=== PATIENT | male | born 1965 | race Two or more races ===

== ENCOUNTER → 2017-02-19 | Emergency (ER) | payer OTHER, MEDICAID ==
[~2017-02-19] VITALS: Ht 170.2 cm; Wt 83.9 kg
[~2017-02-19] MED LIST: DIPHENOXYLATE W/ATROPINE 2.5 MG TAB PO PRN; DIPHENOXYLATE W/ATROPINE 2.5 MG TAB PO SCH; LITH300C3; LITHIUM CARBONATE 300 MG TAB PO SCH; QUET200T44; QUEtiapine FUMARATE 100 MG TAB PO SCH
[2017-02-19 14:04] LABS: Basophils # (auto) 0 uL; Basophils % (auto) 0.3 % (0.0-2.0); CONDITION Y; Eosinophils # (auto) 0.1 uL; Eosinophils % (auto) 1.7 % (0.0-7.0); Hematocrit 38.2 % (41.0-53.0); Hemoglobin 13.1 g/dL (13.5-17.5); Lymphocytes # (auto) 1.6 uL; Lymphocytes % (auto) 20.3 % (10.0-50.0); Mean Corpuscular Hemoglobin 30.2 pg (28.0-32.0); Mean Corpuscular Hgb Conc. 34.2 g/dL (32.0-36.0); Mean Corpuscular Volume 88.4 fL (80.0-100.0); Mean Platelet Volume 7.9 fL (7.4-10.4); Monocytes # (auto) 0.7 uL; Monocytes % (auto) 9.2 % (0.0-12.0); Neutrophils # (auto) 5.2 uL; Neutrophils % (auto) 68.5 % (37.0-80.0); Platelet Count (auto) 275 10^3/uL (140-450); Red Cell Distribution Width 13.8 % (11.6-16.0); White Blood Cell 7.7 10^3/uL (4.4-10.8)
[2017-02-19 14:23] LABS: Albumin 3.6 g/dL (3.4-5.0); Anion Gap 11 (5-15); Aspartate Aminotransferase 108 U/L (15-37); BUN/Creatinine Ratio 18.4; Blood Urea Nitrogen 19 mg/dL (7-18); Calcium 8.2 mg/dL (8.5-10.1); Carbon Dioxide 27 mmol/L (21-32); Chloride 100 mmol/L (98-107); GFR African American 99 mL/min; GFR Non-African American 82 mL/min; Glucose 138 mg/dL (74-106); Magnesium 2.4 mg/dL (1.6-2.6); Potassium 3.5 mmol/L (3.5-5.1); Salicylate < 1.7 mg/dL (2.8-20.0); Sodium 138 mmol/L (136-145)
[2017-02-19 14:24] LABS: Acetaminophen < 2.0 ug/mL (10-30)
[2017-02-19 14:26] LABS: Alkaline Phosphatase 66 U/L (45-117); Bilirubin, Total 0.7 mg/dL (0.2-1.0); Total Protein 7.7 g/dL (6.4-8.2)
[2017-02-20 12:27] VITALS: BP 98/64
== END | disposition home or self-care (01) ==
LOC: ER 13:27
DX: F31.9 Bipolar disorder, unspecified (principal); R45.851 Suicidal ideations; F17.210 Nicotine dependence, cigarettes, uncomplicated; F11.10 Opioid abuse, uncomplicated; F12.10 Cannabis abuse, uncomplicated; F15.10 Other stimulant abuse, uncomplicated; F14.10 Cocaine abuse, uncomplicated
CPT/HCPCS: 36415; 80053; 80307; 80320; 80329; 83735; 84484; 85025; 93005

== ENCOUNTER 2017-03-23 07:31 | Emergency (ER) | payer OTHER, MEDICAID ==
[~2017-03-23] VITALS: Ht 167.6 cm; Wt 75.3 kg
[~2017-03-23 07:31] MED LIST changes: -DIPHENOXYLATE W/ATROPINE 2.5 MG TAB PO PRN; -DIPHENOXYLATE W/ATROPINE 2.5 MG TAB PO SCH; -LITHIUM CARBONATE 300 MG TAB PO SCH; -QUEtiapine FUMARATE 100 MG TAB PO SCH
[2017-03-23 09:34] LABS: Basophils # (auto) 0.1 uL; Basophils % (auto) 0.4 % (0.0-2.0); CONDITION Y; Eosinophils # (auto) 0 uL; Eosinophils % (auto) 0.3 % (0.0-7.0); Hematocrit 40.8 % (41.0-53.0); Hemoglobin 13.7 g/dL (13.5-17.5); Lymphocytes # (auto) 1.8 uL; Lymphocytes % (auto) 13.3 % (10.0-50.0); Mean Corpuscular Hemoglobin 30.2 pg (28.0-32.0); Mean Corpuscular Hgb Conc. 33.7 g/dL (32.0-36.0); Mean Corpuscular Volume 89.5 fL (80.0-100.0); Mean Platelet Volume 7.9 fL (7.4-10.4); Monocytes # (auto) 0.7 uL; Monocytes % (auto) 4.9 % (0.0-12.0); Neutrophils # (auto) 10.8 uL; Neutrophils % (auto) 81.1 % (37.0-80.0); Platelet Count (auto) 322 10^3/uL (140-450); Red Cell Distribution Width 14.2 % (11.6-16.0); White Blood Cell 13.3 10^3/uL (4.4-10.8)
[2017-03-23 09:50] LABS: Albumin 3.8 g/dL (3.4-5.0); BUN/Creatinine Ratio 20.2; Calcium 8.4 mg/dL (8.5-10.1); Potassium 3.3 mmol/L (3.5-5.1)
[2017-03-23 09:54] LABS: Bilirubin, Total 0.8 mg/dL (0.2-1.0)
[2017-03-23 11:38] LABS: Urine Bilirubin Negative (Negative); Urine Blood TRACE /uL (Negative); Urine Color Yellow (Yellow); Urine Glucose Normal (Normal); Urine Nitrite Negative (Negative); Urine RBC 2 /hpf (0 - 3); Urine Squamous Epithelial Cell FEW /hpf (<5); Urine Urobilinogen Normal (Negative)
[2017-03-23 11:40] LABS: Urine Ketone 1+ (Negative)
[2017-03-23] MEDS ORDERED: LEVOFLOXACIN 250 MG TAB PO ONE (13:45)
[2017-03-24] MEDS ORDERED: LORazepam 0.5 MG TAB PO ONE (08:15)
[2017-03-24 14:43] VITALS: BP 100/63
== END 2017-03-24 14:59 | disposition short-term general hospital (02) ==
LOC: ER 07:31
DX: R45.851 Suicidal ideations (principal); F31.9 Bipolar disorder, unspecified; F12.10 Cannabis abuse, uncomplicated; F15.10 Other stimulant abuse, uncomplicated; F11.20 Opioid dependence, uncomplicated; F17.210 Nicotine dependence, cigarettes, uncomplicated
CPT/HCPCS: 36415; 71010; 80053; 80307; 80320; 80329; 81001; 85025

== ENCOUNTER → 2024-11-10 | Outpatient (CLI) | payer OTHER ==
[~2024-11-10] MED LIST changes: -QUET200T44; +QUET200T45
[2024-11-10 13:20] LABS: Urine Bacteria None Seen /hpf (None Seen)
[2024-11-10 13:36] LABS: Urine Blood 1+ /uL (Negative); Urine Clarity Clear (Clear); Urine Color Light-Yellow (Yellow); Urine Protein, UAD 2+ (Negative); Urine Specific Gravity 1.015 (1.001-1.035); Urine Squamous Epithelial Cell None Seen /hpf (<5); Urine Urobilinogen Normal (Negative); Urine WBC 1 /HPF (0-3)
[2024-11-10 13:38] LABS: Basophils # (auto) 0 10 ^3/uL (0-0.2); Basophils % (auto) 0.4 % (0.0-2.0); Eosinophils # (auto) 0.3 10 ^3/uL (0-0.8); Hematocrit 35.1 % (41.0-53.0); Hemoglobin 11.9 g/dL (13.5-17.5); Lymphocytes % (auto) 16.2 % (10.0-50.0); Mean Corpuscular Hemoglobin 29.5 pg (28.0-32.0); Mean Corpuscular Hgb Conc. 33.8 g/dL (32.0-36.0); Mean Corpuscular Volume 87.4 fL (80.0-100.0); Monocytes # (auto) 0.5 10 ^3/uL (0-1.3); Neutrophils # (auto) 4.1 10 ^3/uL (1.6-8.6); Neutrophils % (auto) 70.4 % (37.0-80.0); Nucleated Red Blood Cells % 0.1 %; Platelet Count (auto) 204 10^3/uL (140-450); Red Blood Cells 4.02 10^6/uL (4.5-5.90); White Blood Cell 5.9 10^3/uL (4.4-10.8)
[2024-11-10 14:20] LABS: Anion Gap 10 (5-15); Carbon Dioxide 26 mmol/L (20-31); Chloride 104 mmol/L (98-107); Sodium 140 mmol/L (136-145)
[2024-11-10 14:21] LABS: Calcium 9.7 mg/dL (8.7-10.4)
[2024-11-10 14:25] LABS: Uric Acid 5.9 mg/dL (3.7-9.2)
[2024-11-10 14:26] LABS: BUN/Creatinine Ratio 11.4 (10.0-20.0); Glucose 95 mg/dL (74-106)
[2024-11-10 14:28] LABS: Phosphorus 4.3 mg/dL (2.4-5.1)
[2024-11-10 14:29] LABS: Blood Urea Nitrogen 35 mg/dL (9-23)
== END | disposition home or self-care (01) ==
LOC: LAB 13:04
PROVIDERS: ATTEND Internal Medicine Nephrology
DX: N18.6 End stage renal disease (principal); E55.9 Vitamin D deficiency, unspecified; E21.5 Disorder of parathyroid gland, unspecified; N39.0 Urinary tract infection, site not specified
CPT/HCPCS: 36415; 80048; 81001; 82043; 82306; 83970; 84100; 84550; 85025; 87086

== ENCOUNTER 2024-12-02 15:21 | Emergency (ER) | payer OTHER ==
[~2024-12-02] VITALS: Ht 167.6 cm; Wt 90.0 kg
[2024-12-02 15:48] VITALS: BP 159/84; PULSE 100; RESP 19; TEMP 98; O2SAT 98
--- NOTE | 2024-12-02 16:32 | ED.PDOC ---
History of Present Illness HPI Comments 59 year old male presents to the ED with a chief complaint of dialysis catheter removal onset today. Patient states last dialysis was 4 months ago. Patient recently moved to the [facility], PCP told him to come to ED for catheter removal, states he "squeezed out" blood clot last night. Denies any chest pain, nausea, vomiting, diarrhea, shortness of breath, dizziness, fevers, chills. No other symptoms or modifying factors present at this time. Chief Complaint: Tube Replacement Time Seen by MD: 16:25 Primary Care Provider: none Reviewed Notes: Medications, Allergies Allergies: Coded Allergies: NO KNOWN ALLERGIES (Unverified , 10/02/15) Home Meds Reported Medications [place] Carbonate (Lantry Carbonate) 300 Mg Cap, #30 02/20/17 Quetiapine Fumerate (QUETIAPINE FUMARATE) 200 Mg Tab, #15 02/20/17 Information Source: Patient Mode of Arrival: Ambulatory Severity: Moderate Timing: Hours Duration: Since onset Prehospital treatment: None Past Medical History PAST MEDICAL HISTORY: Depression Surgical History: Denies all surgeries Family History Family History: Unknown Social History Smoker: Cigarettes Alcohol: Heavy Drugs: Heroin, Marijuana, Methamphetamine Lives In: Home Constitutional: denies: chills, diaphoresis, fatigue, fever, malaise, sweats, weakness, others EENTM: denies: blurred vision, double vision, ear bleeding, ear discharge, ear drainage, ear pain, ear ringing, eye pain, eye redness, hearing loss, mouth pain, mouth swelling, nasal discharge, nose bleeding, nose congestion, nose pain, photophobia, tearing, throat pain, throat swelling, voice changes, others Respiratory: denies: cough, hemoptysis, orthopnea, SOB at rest, shortness of breath, SOB with excertion, stridor, wheezing, others Cardiovascular: denies: chest pain, dizzy spells, diaphoresis, Dyspnea on exertion, edema, irregular heart beat, left arm pain, lightheadedness, palpitations, PND, syncope, others Gastrointestinal: denies: abdomen distended, abdominal pain, blood streaked bowels, constipated, diarrhea, dysphagia, difficulty swallowing, hematemesis, melena, nausea, poor appetite, poor fluid intake, rectal bleeding, rectal pain, vomiting, others Genitourinary: denies: burning, dysuria, flank pain, frequency, hematuria, incontinence, penile discharge, penile sore, pain, testicle pain, testicle swelling, urgency, others Neurological: denies: dizziness, fainting, headache, left sided numbness, left sided weakness, numbness, paresthesia, pre-existing deficit, right sided numbness, right sided weakness, seizure, speech problems, tingling, tremors, weakness, others Musculoskeletal: denies: back pain, gout, joint pain, joint swelling, muscle pain, muscle stiffness, neck pain, others Integumetry: denies: bruises, change in color, change in hair/nails, dryness, laceration, lesions, lumps, rash, wounds, others Allergic/Immunocompromised: denies: Difficulty Healing, Frequent Infections, Hives, Itching, others Hematologic/Lymphatic: denies: anemia, blood clots, easy bleeding, easy bruising, swollen glands, others Endocrine: denies: excessive hunger, excessive sweating, excessive thirst, excessive urination, flushing, intolerance to cold, intolerance to heat, unexplained weight gain, unexplained weight loss, others Psychiatric: denies: anxiety, bipolar disorder, depression, hopeless, panic disorder, schizophrenia, sleepless, suicidal, others All Other Systems: Reviewed and Negative Physical Exam General Appearance: No Apparent Distress, Normal, Other (well appearing dialysis catheter) HEENT: Normal ENT Inspection, Pharynx Normal, TMs Normal Neck: Full Range of Motion, Non-Tender, Normal, Normal Inspection Respiratory: Chest Non-Tender, Lungs Clear, No Accessory Muscle Use, No Respiratory Distress, Normal Breath Sounds Cardiovascular: No Edema, No JVD, No Murmur, No Gallop, Normal Peripheral Pulses, Regular Rate/Rhythm Breast Exam: Deferred Gastrointestinal: No Organomegaly, Non Tender, No Pulsatile Mass, Normal Bowel Sounds, Soft Genitalia: Deferred Pelvic: Deferred Rectal: Deferred Extremities: No calf tenderness, Normal capillary refill, Normal inspection, Normal range of motion, Non-tender, No pedal edema Musculoskeletal : Apperance: Normal Neurologic: Alert, ion exchange operator II-XII nml as Tested, No Motor Deficits, Normal Affect, Normal Mood, No Sensory Deficits Cerebellar Function: Normal Reflexes: Normal Skin: Dry, Normal Color, Warm, Other (well appearing dialysis catheter) Lymphatic: No Adenopathy Was a procedure done? Was a procedure done?: No Differential Dx Considerations may include: Dialysis catheter malfunction X-Ray, Labs, Meds, VS Vital Signs Date Time Temp Pulse Resp B/P (MAP) Pulse Ox O2 Delivery O2 Flow Rate FiO2 12/02/24 15:48 98.0 100 19 159/84 (109) 98 98.0 [facility] [address] [facility] [address] Ph: [phone] DIAGNOSTIC IMAGING Diagnostic Imaging Report : [id number] Signed PATIENT: MARIPOSA FRAZIER ACCT: [id number] UNIT: [id number] : 1965 LOC: ER ROOM / BED: / AGE / SEX: 59 / M ADM STATUS: REG ER SERVICE 1626 ORDERING PHYSICIAN: AGATHA JUAREZ MD PROCEDURE(s): CXRP - CHEST PORTABLE REASON: evaluate dialysis catheter ORDER NUMBER(s): [id number], ACCESSION NUMBER(s): [id number] CHEST RADIOGRAPH Indication: evaluate dialysis catheter Technique: Single frontal view of the chest was obtained COMPARISON: None FINDINGS: Lines and Tubes: Dave catheter ends in the superior vena cava distally. Atrial appendage closure device noted. Lungs: Clear Pleura: Blunting left costophrenic angle which may be postsurgical in nature. Mild left lateral pleural thickening No pneumothorax. Cardiomediastinal contours: Unremarkable Bones: Unremarkable IMPRESSION: 1. Dave catheter ends in the distal superior vena cava Blunting left costophrenic angle with mild left pleural thickening No pneumothorax ATED BY: ANGIE LOMAS MD DICTATED DATE/TIME: 12/02/241657 SIGNED BY: ANGIE LOMAS MD SIGNED DATE/TIME: 12/02/241657 CC: Time of 1ST Reevaluation: 16:55 Reevaluation 1ST: Unchanged Patient Education/Counseling: Diagnosis, Treatment, Prognosis Family Education/Counseling: No Family Present Departure 1 Departure Time of Disposition: 17:35 (Patient has an unused dialysis catheter. We will discharge patient with outpatient follow up for dialysis catheter removal) Impression: Primary Impression: Encounter for dialysis catheter care Disposition: HOME / SELF CARE / HOMELESS Condition: Stable Additional Instructions: Please call [phone] to schedule an appointment with interventional radiology to remove the dialysis catheter. Discharged With: Self Critical Care Note Critical Care Time?: No Stability Stability form required: No I personally scribed for AGATHA JUAREZ MD ([email or web address]) on 12/02/24 at 16:32. Electronically submitted by Lynette Worley ([email or web address]). I personally scribed for AGATHA JUAREZ MD ([email or web address]) on 12/02/24 at 17:20. Electronically submitted by Lynette Worley ([email or web address]). AGATHA JUAREZ MD Dec 02, 2024 16:32
--- NOTE | 2024-12-02 17:00 | DVH ---
CHEST RADIOGRAPH Indication: evaluate dialysis catheter Technique: Single frontal view of the chest was obtained COMPARISON: None FINDINGS: Lines and Tubes: Dave catheter ends in the superior vena cava distally. Atrial appendage closure d evice noted. Lungs: Clear Pleura: Blunting left costophrenic angle which may be postsurgical in nature. Mild left lateral pleur al thickening No pneumothorax. Cardiomediastinal contours: Unremarkable Bones: Unremarkable IMPRESSION: 1. Dave catheter ends in the distal superior vena cava Blunting left costophrenic angle with mild left pleural thickening No pneumothorax
[2024-12-03] MEDS ORDERED: [UNRECOGNIZED DRUG - CODE] (22:45)
== END 2024-12-02 23:06 | disposition home or self-care (01) ==
LOC: ER 15:29
DX: Z45.2 Encounter for adjustment and management of vascular access device (principal); F32.A Depression, unspecified; F17.210 Nicotine dependence, cigarettes, uncomplicated; F15.90 Other stimulant use, unspecified, uncomplicated; F11.90 Opioid use, unspecified, uncomplicated; Z99.2 Dependence on renal dialysis; Z79.899 Other long term (current) drug therapy
CPT/HCPCS: 71045

== ENCOUNTER 2024-12-03 11:43 | Observation (INO) | payer OTHER ==
--- NOTE | 2024-12-03 12:20 | ED.PDOC ---
History of Present Illness HPI Comments 59Y M presents to the ED with a chief complaint of dialysis catheter removal. Patient states last dialysis was 4 months ago. Patient recently moved to the [facility], PCP told him to come to ED for catheter removal, states he "squeezed out" blood clot 2 nights ago. Pt was seen at [facility] ER yesterday, 12/02/2024, and was advised to f/u with outpatient IR. Pt was referred back to ED. Pt denies any chest pain, nausea, vomiting, diarrhea, shortness of breath, dizziness, fevers, chills. No other symptoms or modifying factors present at this time. Chief Complaint: Tube Replacement Time Seen by MD: 12:00 Primary Care Provider: ANDREA BALLESTEROS Reviewed Notes: Nurses Notes, Medications, Allergies Allergies: Coded Allergies: NO KNOWN ALLERGIES (Unverified , 10/02/15) Home Meds Reported Medications [place] Carbonate (Ekalaka Carbonate) 300 Mg Cap, #30 02/20/17 Quetiapine Fumerate (QUETIAPINE FUMARATE) 200 Mg Tab, #15 02/20/17 Information Source: Patient Mode of Arrival: Ambulatory Severity: None Duration: Since onset Prehospital treatment: None Past Medical History PAST MEDICAL HISTORY: Depression Surgical History: Denies all surgeries Family History Family History: Unknown Social History Smoker: Cigarettes Alcohol: Heavy Drugs: Heroin, Marijuana, Methamphetamine Lives In: Home Constitutional: denies: chills, diaphoresis, fatigue, fever, malaise, sweats, weakness, others EENTM: denies: blurred vision, double vision, ear bleeding, ear discharge, ear drainage, ear pain, ear ringing, eye pain, eye redness, hearing loss, mouth pain, mouth swelling, nasal discharge, nose bleeding, nose congestion, nose pain, photophobia, tearing, throat pain, throat swelling, voice changes, others Respiratory: denies: cough, hemoptysis, orthopnea, SOB at rest, shortness of breath, SOB with excertion, stridor, wheezing, others Cardiovascular: denies: chest pain, dizzy spells, diaphoresis, Dyspnea on exertion, edema, irregular heart beat, left arm pain, lightheadedness, palpitations, PND, syncope, others Gastrointestinal: denies: abdomen distended, abdominal pain, blood streaked bowels, constipated, diarrhea, dysphagia, difficulty swallowing, hematemesis, melena, nausea, poor appetite, poor fluid intake, rectal bleeding, rectal pain, vomiting, others Genitourinary: denies: burning, dysuria, flank pain, frequency, hematuria, incontinence, penile discharge, penile sore, pain, testicle pain, testicle swelling, urgency, others Neurological: denies: dizziness, fainting, headache, left sided numbness, left sided weakness, numbness, paresthesia, pre-existing deficit, right sided numbness, right sided weakness, seizure, speech problems, tingling, tremors, weakness, others Musculoskeletal: denies: back pain, gout, joint pain, joint swelling, muscle pain, muscle stiffness, neck pain, others Integumetry: denies: bruises, change in color, change in hair/nails, dryness, laceration, lesions, lumps, rash, wounds, others Allergic/Immunocompromised: denies: Difficulty Healing, Frequent Infections, Hives, Itching, others Hematologic/Lymphatic: denies: anemia, blood clots, easy bleeding, easy bruising, swollen glands, others Endocrine: denies: excessive hunger, excessive sweating, excessive thirst, excessive urination, flushing, intolerance to cold, intolerance to heat, unexplained weight gain, unexplained weight loss, others Psychiatric: denies: anxiety, bipolar disorder, depression, hopeless, panic disorder, schizophrenia, sleepless, suicidal, others All Other Systems: Reviewed and Negative Physical Exam General Appearance: No Apparent Distress, Normal HEENT: Normal ENT Inspection, Pharynx Normal, TMs Normal Neck: Full Range of Motion, Non-Tender, Normal, Normal Inspection Respiratory: Chest Non-Tender, Lungs Clear, No Accessory Muscle Use, No Respiratory Distress, Normal Breath Sounds Cardiovascular: No Edema, No JVD, No Murmur, No Gallop, Normal Peripheral Pulses, Regular Rate/Rhythm Breast Exam: Deferred Gastrointestinal: No Organomegaly, Non Tender, No Pulsatile Mass, Normal Bowel Sounds, Soft Genitalia: Deferred Pelvic: Deferred Rectal: Deferred Extremities: No calf tenderness, Normal capillary refill, Normal inspection, Normal range of motion, Non-tender, No pedal edema Musculoskeletal : Apperance: Normal Neurologic: Alert, activities officer II-XII nml as Tested, No Motor Deficits, Normal Affect, Normal Mood, No Sensory Deficits Cerebellar Function: NOT DONE Reflexes: NOT DONE Skin: Dry, Normal Color, Warm Lymphatic: No Adenopathy Was a procedure done? Was a procedure done?: No Differential Dx Considerations may include: Dialysis tube malfunction X-Ray, Labs, Meds, VS Vital Signs Date Time Temp Pulse Resp B/P (MAP) Pulse Ox O2 Delivery O2 Flow Rate FiO2 12/03/24 12:00 98.3 94 20 164/95 (118) 98 98.3 Lab Test 12/03/24 12:15 Range/Units White Blood Count 5.8 4.4-10.8 10^3/uL Red Blood Count 4.02 L 4.5-5.90 10^6/uL Hemoglobin 11.6 L 13.5-17.5 g/dL Hematocrit 35.0 L 41.0-53.0 % Mean Corpuscular Volume 87.1 80.0-100.0 fL Mean Corpuscular Hemoglobin 28.8 28.0-32.0 pg Mean Corpuscular Hemoglobin Concent 33.1 32.0-36.0 g/dL Red Cell Distribution Width 15.7 H 11.8-14.3 % Platelet Count 249 140-450 10^3/uL Mean Platelet Volume 7.7 6.9-10.8 fL Neutrophils (%) (Auto) 70.2 37.0-80.0 % Lymphocytes (%) (Auto) 14.6 10.0-50.0 % Monocytes (%) (Auto) 9.6 0.0-12.0 % Eosinophils (%) (Auto) 5.5 0.0-7.0 % Basophils (%) (Auto) 0.1 0.0-2.0 % Neutrophils # (Auto) 4.1 1.6-8.6 10 ^3/uL Lymphocytes # (Auto) 0.9 0.4-5.4 10 ^3/uL Monocytes # (Auto) 0.6 0-1.3 10 ^3/uL Eosinophils # (Auto) 0.3 0-0.8 10 ^3/uL Basophils # (Auto) 0 0-0.2 10 ^3/uL Nucleated Red Blood Cells 0.0 % Prothrombin Time Pending Prothrombin Time INR Pending Activated Partial Thromboplast Time Pending Sodium Level Pending Potassium Level Pending Chloride Level Pending Carbon Dioxide Level Pending Anion Gap Pending Blood Urea Nitrogen Pending Creatinine Pending Glomerular Filtration Rate Calc Pending BUN/Creatinine Ratio Pending Serum Glucose Pending Calcium Level Pending Time of 1ST Reevaluation: 12:30 Reevaluation 1ST: Unchanged Patient Education/Counseling: Diagnosis, Treatment Family Education/Counseling: No Family Present Departure 1 Departure Time of Disposition: 12:49 (Patient presents with concern for dialysis catheter infection verses displacement and would likely need it removed.) Impression: Primary Impression: Encounter for dialysis catheter care Disposition: ADMITTED INPATIENT Admit to: Med Surg Condition: Serious Critical Care Note Critical Care Time?: No Stability Stability form required: No Heart Score Heart Score: Heart Score Response (Comments) Value History N/A 0 EKG N/A 0 Age N/A 0 Risk Factors N/A 0 Troponin N/A 0 Total 0 I personally scribed for AGATHA JUAREZ MD ([email or web address]) on 12/03/24 at 12:20. Electronically submitted by Una Etienne ([email or web address]). AGATHA JUAREZ MD Dec 03, 2024 12:20
[2024-12-03 12:41] LABS: Basophils # (auto) 0 10 ^3/uL (0-0.2); Basophils % (auto) 0.1 % (0.0-2.0); Eosinophils # (auto) 0.3 10 ^3/uL (0-0.8); Eosinophils % (auto) 5.5 % (0.0-7.0); Hemoglobin 11.6 g/dL (13.5-17.5); Lymphocytes # (auto) 0.9 10 ^3/uL (0.4-5.4); Lymphocytes % (auto) 14.6 % (10.0-50.0); Mean Corpuscular Hemoglobin 28.8 pg (28.0-32.0); Mean Corpuscular Hgb Conc. 33.1 g/dL (32.0-36.0); Mean Corpuscular Volume 87.1 fL (80.0-100.0); Monocytes # (auto) 0.6 10 ^3/uL (0-1.3); Monocytes % (auto) 9.6 % (0.0-12.0); Neutrophils # (auto) 4.1 10 ^3/uL (1.6-8.6); Neutrophils % (auto) 70.2 % (37.0-80.0); Platelet Count (auto) 249 10^3/uL (140-450); Red Blood Cells 4.02 10^6/uL (4.5-5.90); Red Cell Distribution Width 15.7 % (11.8-14.3); White Blood Cell 5.8 10^3/uL (4.4-10.8)
[2024-12-03 12:51] LABS: Chloride 104 mmol/L (98-107); Potassium 4.2 mmol/L (3.5-5.1); Sodium 137 mmol/L (136-145)
[2024-12-03 12:52] LABS: Anion Gap 6 (5-15); Carbon Dioxide 27 mmol/L (20-31)
[2024-12-03 12:53] LABS: Calcium 9.6 mg/dL (8.7-10.4)
[2024-12-03 12:55] LABS: INR 1.01 (0.9-1.15); Partial Thromboplastin Time 30.6 SEC (24.5-34.5); Prothrombin Time 10.7 sec (9.3-11.8)
[2024-12-03 12:57] LABS: BUN/Creatinine Ratio 9.9 (10.0-20.0); Glucose 85 mg/dL (74-106)
[2024-12-03 13:02] LABS: Blood Urea Nitrogen 30 mg/dL (9-23)
[2024-12-03 13:40] VITALS: PULSE 91; RESP 18; O2SAT 94
[2024-12-03] MEDS: LOSARTAN POTASSIUM 25 MG TAB PO ONE (16:45)
--- NOTE | 2024-12-03 18:57 | DVHHPRES ---
History of Present Illness Resident Creating Document: HUY GALEANO RESIDENT History of Present Illness This is a 59-year-old male with past medical history of hypertension, CAD status post CABG, CKD stage 3 on hemodialysis for 1 year presented to the ED for removal of dialysis catheter. The patient states that his ultrasound applications specialist mentioned 1 month ago he did not need dialysis and recommended to go to the ED for removal of the dialysis catheter. He also mentioned that he monitor his blood pressure in home and numbers are always elevated more than 150/90 mm Hg. He moved [place] for 5 months ago and he does not have any PCP so he is not on any antihypertensive for hypertension. The patient denies fever, chills, shortness of breath, chest pain, dizziness, dysuria or any change in bowel and bladder habit. Past Medical History Hypertension, CAD status post CABG, CKD stage 3 on hemodialysis for 1 year Past Surgical History CABG Family History None Past Social History Lives with family Nonsmoker, nonalcoholic and never tried any drugs Review of Systems Constitutional: No: Fever, Chills, Sweats, Weakness, Malaise, Other Eyes: No: Pain, Vision change, Conjunctivae inflammation, Eyelid inflammation, Other, Redness ENT: No: Ear pain, Ear discharge, Nose pain, Nose discharge, Nose congestion, Mouth pain, Mouth swelling, Throat pain, Throat swelling, Other Respiratory: No: Cough, Dry, Shortness of breath, SOB with excertion, Wheezing, Hemoptysis, Pleuritic Pain, Sputum, Wheezing, Other Cardiovascular: No: Chest Pain, Palpitations, Orthopnea, Paroxysmal Noc. Dyspnea, Edema, Lt Headedness, Other Gastrointestinal: No: Nausea, Vomiting, Abdominal Pain, Diarrhea, Constipation, Melena, Hematochezia, Other Genitourinary: No Dysuria, No Frequency, No Incontinence, No Hematuria, No Retention, No Other Musculoskeletal: No: other, neck pain, shoulder pain, arm pain, back pain, hand pain, leg pain, foot pain Skin: No: Rash, Lesions, Jaundice, Bruising, Other Neurological: No: Weakness, Numbness, Incoordination, Change in speech, Confusion, Seizures, Other Allergies: Coded Allergies: NO KNOWN ALLERGIES (Unverified , 10/02/15) Medications Current Medications Medications Dose Ordered Sig/Florian Route Start Time Stop Time Status Last Admin Dose Admin Losartan Potassium 25 mg DAILY PO 12/04/24 10:00 Exam Vital Signs Vital Signs Date Time Temp Pulse Resp B/P (MAP) Pulse Ox O2 Delivery O2 Flow Rate FiO2 12/03/24 14:30 97.9 91 16 170/99 (122) 96 97.9 12/03/24 13:40 Room Air* 0 21 Exam Physical examination: General Appearance: Alert, Oriented X3, Cooperative, No acute distress HEENT: Atraumatic, PERRLA, EOMI, Mucous membrane moist/pink Respiratory: Clear to auscultation, Normal air movement Cardiovascular: Regular rate, Normal S1, Normal S2, No murmurs, no chest wall tenderness Abdominal: Normal bowel sounds, Soft, No tenderness, No hepatospenomegaly, No masses Extremities: No clubbing, No cyanosis, No edema, Normal pulses, No tenderness/swelling Skin: Tunnel catheter for dialysis on the right side, No rashes, No breakdown, No significant lesion Neuro: Normal gait, Normal speech, Strength at 5/5 X4 ext, Normal tone, Sensation intact, Cranial nerves 3-12 NL, Reflexes 2+ Psych/Mental Status: Mental status NL, Mood NL Labs/Xrays Labs Test 12/03/24 12:15 Range/Units White Blood Count 5.8 4.4-10.8 10^3/uL Red Blood Count 4.02 L 4.5-5.90 10^6/uL Hemoglobin 11.6 L 13.5-17.5 g/dL Hematocrit 35.0 L 41.0-53.0 % Mean Corpuscular Volume 87.1 80.0-100.0 fL Mean Corpuscular Hemoglobin 28.8 28.0-32.0 pg Mean Corpuscular Hemoglobin Concent 33.1 32.0-36.0 g/dL Red Cell Distribution Width 15.7 H 11.8-14.3 % Platelet Count 249 140-450 10^3/uL Mean Platelet Volume 7.7 6.9-10.8 fL Neutrophils (%) (Auto) 70.2 37.0-80.0 % Lymphocytes (%) (Auto) 14.6 10.0-50.0 % Monocytes (%) (Auto) 9.6 0.0-12.0 % Eosinophils (%) (Auto) 5.5 0.0-7.0 % Basophils (%) (Auto) 0.1 0.0-2.0 % Neutrophils # (Auto) 4.1 1.6-8.6 10 ^3/uL Lymphocytes # (Auto) 0.9 0.4-5.4 10 ^3/uL Monocytes # (Auto) 0.6 0-1.3 10 ^3/uL Eosinophils # (Auto) 0.3 0-0.8 10 ^3/uL Basophils # (Auto) 0 0-0.2 10 ^3/uL Nucleated Red Blood Cells 0.0 % Prothrombin Time 10.7 9.3-11.8 sec Prothrombin Time INR 1.01 0.9-1.15 Activated Partial Thromboplast Time 30.6 24.5-34.5 SEC Sodium Level 137 136-145 mmol/L Potassium Level 4.2 3.5-5.1 mmol/L Chloride Level 104 98-107 mmol/L Carbon Dioxide Level 27 20-31 mmol/L Anion Gap 6 5-15 Blood Urea Nitrogen 30 H 9-23 mg/dL Creatinine 3.03 H 0.700-1.30 mg/dL Glomerular Filtration Rate Calc 23 >90 mL/min BUN/Creatinine Ratio 9.9 L 10.0-20.0 Serum Glucose 85 74-106 mg/dL Calcium Level 9.6 8.7-10.4 mg/dL Assessment/Plan Assessment/Plan Assessment and plan: # Removal of dialysis catheter # Stage 3 CKD and on hemodialysis for 1 year - consulted IR for removal of the dialysis catheter - NPO after midnight - coagulation studies normal # Uncontrolled hypertension - Losartan 20 mg p.o. daily # History of bipolar disorder - continue home meds # DVT prophylaxis - Not recommended as patient is mobile Goal of care discussed with the patient for more than 15 minutes full code Plan discussed with Dr. Morley Plan discussed with: Patient, Other My Orders Orders - HUY GALEANO Procedure Category Date Status Time Admit ADMIT 12/03/24 Transmitted 16:36 Npo After Midnight ORDERS 12/03/24 Transmitted Npo (Nothing By DIET 12/04/24 Transmitted Mouth) Diet Breakfast Losartan Tablet PHA 12/04/24 In Process (Cozaar Tablet) 10:00 Date of Service: Dec 03, 2024 Billing Provider: SHANIQUE MORLEY MD Common Visit Codes: [id number] INP/OBS CARE (HIGH) HUY GALEANO RESIDENT Dec 03, 2024 18:57 SHANIQUE MORLEY MD Dec 09, 2024 12:08
[2024-12-03] MEDS ORDERED: hydrALAZINE HCL 20 MG/ML VL IV PRN (19:00)
[2024-12-03 20:30] VITALS: BP 145/84; PULSE 88; RESP 20; TEMP 97.7; O2SAT 98
[2024-12-03 22:22] VITALS: BP 165/95; PULSE 86; RESP 19; TEMP 97.3; O2SAT 97
[2024-12-03] MEDS ORDERED: [UNRECOGNIZED DRUG - CODE] (22:45)
[2024-12-04] MEDS: QUEtiapine FUMARATE 100 MG TAB PO ONE (00:47)
[2024-12-04 01:00] VITALS: BP 140/84; PULSE 97; RESP 18; TEMP 97.3; O2SAT 95
[2024-12-04] MEDS: SALINE 0.65 % NASAL SPRAY 45ML BOTTLE EACHNOSTRI ONE ×2 (02:41→09:04)
[2024-12-04 05:00] VITALS: BP 163/92; PULSE 89; RESP 18; TEMP 97.3; O2SAT 96
[2024-12-04] MEDS: LOSARTAN POTASSIUM 25 MG TAB PO SCH (06:45)
[2024-12-04 08:00] VITALS: PULSE 89; RESP 18; O2SAT 98
[2024-12-04] MEDS ORDERED: LIDOCAINE 2%HCL (LOCAL ANESTH.) INJ 10ml MDV ONE (09:01)
[2024-12-04 09:15] VITALS: BP 167/97; PULSE 89; RESP 17; TEMP 97.6; O2SAT 96
--- NOTE | 2024-12-04 09:54 | DVHDSRES ---
Discharge Summary Date of Admission Resident Creating Document: HUY GALEANO RESIDENT Dec 03, 2024 at 16:36 Date of Discharge: Dec 04, 2024 Admitting Diagnosis Removal of dialysis catheter Wounds: No wound was present Labs/Diagnostic Data: Laboratory Results Test 12/03/24 12:15 White Blood Count 5.8 10^3/uL (4.4-10.8) Red Blood Count 4.02 10^6/uL (4.5-5.90) Hemoglobin 11.6 g/dL (13.5-17.5) Hematocrit 35.0 % (41.0-53.0) Mean Corpuscular Volume 87.1 fL (80.0-100.0) Mean Corpuscular Hemoglobin 28.8 pg (28.0-32.0) Mean Corpuscular Hemoglobin Concent 33.1 g/dL (32.0-36.0) Red Cell Distribution Width 15.7 % (11.8-14.3) Platelet Count 249 10^3/uL (140-450) Mean Platelet Volume 7.7 fL (6.9-10.8) Neutrophils (%) (Auto) 70.2 % (37.0-80.0) Lymphocytes (%) (Auto) 14.6 % (10.0-50.0) Monocytes (%) (Auto) 9.6 % (0.0-12.0) Eosinophils (%) (Auto) 5.5 % (0.0-7.0) Basophils (%) (Auto) 0.1 % (0.0-2.0) Neutrophils # (Auto) 4.1 10 ^3/uL (1.6-8.6) Lymphocytes # (Auto) 0.9 10 ^3/uL (0.4-5.4) Monocytes # (Auto) 0.6 10 ^3/uL (0-1.3) Eosinophils # (Auto) 0.3 10 ^3/uL (0-0.8) Basophils # (Auto) 0 10 ^3/uL (0-0.2) Nucleated Red Blood Cells 0.0 % Prothrombin Time 10.7 sec (9.3-11.8) Prothrombin Time INR 1.01 (0.9-1.15) Activated Partial Thromboplast Time 30.6 SEC (24.5-34.5) Sodium Level 137 mmol/L (136-145) Potassium Level 4.2 mmol/L (3.5-5.1) Chloride Level 104 mmol/L (98-107) Carbon Dioxide Level 27 mmol/L (20-31) Anion Gap 6 (5-15) Blood Urea Nitrogen 30 mg/dL (9-23) Creatinine 3.03 mg/dL (0.700-1.30) Glomerular Filtration Rate Calc 23 mL/min (>90) BUN/Creatinine Ratio 9.9 (10.0-20.0) Serum Glucose 85 mg/dL (74-106) Calcium Level 9.6 mg/dL (8.7-10.4) Other Laboratory Tests 12/03/24 12:15 Brief Hx & Hospital Course: This is a 59-year-old male with past medical history of hypertension, CAD status post CABG, CKD stage 3 on hemodialysis for 1 year presented to the ED for removal of dialysis catheter. The patient states that his unit technician mentioned 1 month ago he did not need dialysis and recommended to go to the ED for removal of the dialysis catheter. He also mentioned that he monitor his blood pressure in home and numbers are always elevated more than 150/90 mm Hg. He moved [place] for 5 months ago and he does not have any PCP so he is not on any antihypertensive for hypertension. The patient denies fever, chills, shortness of breath, chest pain, dizziness, dysuria or any change in bowel and bladder habit. Hospital course: The patient was admitted under observation. IR was consulted for removal of the dialysis catheter. Patient underwent removal of the dialysis catheter by IR today and the procedure was uneventful. postoperative chest x- ray was normal. Blood pressure was uncontrolled and prescribed Nifedipine ER 30 mg p.o. daily on discharge. Patient is being discharged to home. Physical examination: General Appearance: Alert, Oriented X3, Cooperative, No acute distress HEENT: Atraumatic, PERRLA, EOMI, Mucous membrane moist/pink Respiratory: Clear to auscultation, Normal air movement Cardiovascular: Regular rate, Normal S1, Normal S2, No murmurs, no chest wall tenderness Abdominal: Normal bowel sounds, Soft, No tenderness, No hepatospenomegaly, No masses Extremities: No clubbing, No cyanosis, No edema, Normal pulses, No tenderness/swelling Skin: No rashes, No breakdown, No significant lesion Neuro: Normal gait, Normal speech, Strength at 5/5 X4 ext, Normal tone, Sensation intact, Cranial nerves 3-12 NL, Reflexes 2+ Psych/Mental Status: Mental status NL, Mood NL Consults/Reason for consult IR was consulted Operations or Procedures XY CHEST XRAY 1 VIEW, HISTORY: POST TD REMOVAL PROCEDURE: An informed consent was obtained. The patient was placed inclined on a gurney. The skin around the catheter was prepped with chlorhexidine which was allowed to dry and draped in the usual sterile fashion. Time out was performed. The skin and the catheter tract were infiltrated with 1% Lidocaine . The catheter tract was blunt dissected with a Kacey clamp and the tunneled catheter was removed. Hemostasis of the venotomy site was obtained with manual pressure. The skin opening was dressed with a sterile bandage. No immediate complication was noted. IMPRESSION: Successful removal of right IJ vein tunneled hemodialysis catheter. Condition at Discharge: Guarded Final Diagnosis/Problems List # Removal of dialysis catheter # Stage 3 CKD and on hemodialysis for 1 year # Uncontrolled hypertension # History of bipolar disorder Discharge Disposition: Home Discharge Instruct/Medications Diet: Cardiac 2g Na,low cholest Activity: No Restrictions, As Tolerated Follow Up/Referral: Follow up with PCP in 1 week. Follow up with Nephrology in 1 to 2 weeks Medications: Nifedipine ER 30 mg po daily. Discharge Statement: "Patient was advised to return to the ER or call 911 if any headaches, dizziness, shortness of breath, chest pain, abdominal pain, bleeding, fevers, or worsening of medical condition. Patient was counseled about treatment plan, medications, possible side effects, patientverbalized understanding. All questions were answered to the best of my ability. This discharge took greater then 30 minutes in planning, reviewing documentation, counseling the patient, and discussing with other team members." ASSESSMENT ASSESSMENT Assessment # Removal of dialysis catheter # Stage 3 CKD and on hemodialysis for 1 year # Uncontrolled hypertension # History of bipolar disorder Date of Service: Dec 04, 2024 Billing Provider: MRAGIE MOSLEY MD Common Visit Codes: 57210-FAX/OBS DISCH DAY >30min HUY GALEANO RESIDENT Dec 04, 2024 09:54 MARGIE MOSLEY MD Dec 07, 2024 23:01
[2024-12-04] MEDS ORDERED: LOSA-534 PO (09:55)
[2024-12-04] MEDS ORDERED: QUEtiapine FUMARATE 100 MG TAB PO SCH (10:00)
[2024-12-04] MEDS ORDERED: LOSARTAN POTASSIUM 25 MG TAB PO SCH (10:00)
--- NOTE | 2024-12-04 10:02 | DVH ---
XY CHEST XRAY 1 VIEW, HISTORY: POST TD REMOVAL PROCEDURE: An informed consent was obtained. The patient was placed inclined on a gurney. The skin ar ound the catheter was prepped with chlorhexidine which was allowed to dry and draped in the usual warren rile fashion. Time out was performed. The skin and the catheter tract were infiltrated with 1% Lidoca ine . The catheter tract was blunt dissected with a Kacey clamp and the tunneled catheter was removed . Hemostasis of the venotomy site was obtained with manual pressure. The skin opening was dressed wit h a sterile bandage. No immediate complication was noted. IMPRESSION: Successful removal of right IJ vein tunneled hemodialysis catheter.
[2024-12-04] MEDS ORDERED: NIFE1TAB31 PO (11:31)
== END 2024-12-04 12:00 | disposition home or self-care (01) ==
LOC: ER 11:54 → INTOOBSV 16:36 → UNDOADMOB 16:36 → OVERFLOW 16:36 → WEST WING 22:22 → UNDODISOB 12-04 12:00
PROVIDERS: ADMIT Student in an Organized Health Care Education/Training Program; ATTEND Student in an Organized Health Care Education/Training Program
DX: I12.9 Hypertensive chronic kidney disease with stage 1 through stage 4 chronic kidney disease, or unspecified chronic kidney disease (principal); N18.30 Chronic kidney disease, stage 3 unspecified; F32.A Depression, unspecified; F17.210 Nicotine dependence, cigarettes, uncomplicated; R79.1 Abnormal coagulation profile; F12.90 Cannabis use, unspecified, uncomplicated; F19.90 Other psychoactive substance use, unspecified, uncomplicated; Z99.2 Dependence on renal dialysis; Z79.899 Other long term (current) drug therapy; Z98.890 Other specified postprocedural states
CPT/HCPCS: 36415; 71045; 80048; 85025; 85610; 85730; 99284; G0378; J2003

== ENCOUNTER → 2025-01-06 | Outpatient (CLI) | payer OTHER ==
[~2025-01-06] MED LIST changes: +NIFE1TAB31 PO; +[UNRECOGNIZED DRUG - CODE]
[2025-01-06 10:28] LABS: Urine Bacteria None Seen /hpf (None Seen)
[2025-01-06 10:36] LABS: Basophils # (auto) 0 10 ^3/uL (0-0.2); Basophils % (auto) 0.6 % (0.0-2.0); Eosinophils # (auto) 0.4 10 ^3/uL (0-0.8); Eosinophils % (auto) 7.3 % (0.0-7.0); Hematocrit 35.1 % (41.0-53.0); Hemoglobin 11.7 g/dL (13.5-17.5); Lymphocytes # (auto) 0.9 10 ^3/uL (0.4-5.4); Lymphocytes % (auto) 17.1 % (10.0-50.0); Mean Corpuscular Hemoglobin 28.1 pg (28.0-32.0); Mean Corpuscular Hgb Conc. 33.3 g/dL (32.0-36.0); Mean Corpuscular Volume 84.4 fL (80.0-100.0); Monocytes # (auto) 0.5 10 ^3/uL (0-1.3); Monocytes % (auto) 9.6 % (0.0-12.0); Neutrophils # (auto) 3.6 10 ^3/uL (1.6-8.6); Neutrophils % (auto) 65.4 % (37.0-80.0); Nucleated Red Blood Cells % 0.1 %; Platelet Count (auto) 223 10^3/uL (140-450); Red Blood Cells 4.16 10^6/uL (4.5-5.90); Red Cell Distribution Width 16.3 % (11.8-14.3); White Blood Cell 5.5 10^3/uL (4.4-10.8)
[2025-01-06 10:43] LABS: Urine Blood TRACE /uL (Negative); Urine Clarity Clear (Clear); Urine Color Light-Yellow (Yellow); Urine Protein, UAD 1+ (Negative); Urine Specific Gravity 1.014 (1.001-1.035); Urine Squamous Epithelial Cell FEW /hpf (<5); Urine Urobilinogen Normal (Negative); Urine WBC < 1 /HPF (0-3); Urine pH 6.5 (5.0-9.0)
[2025-01-06 11:04] LABS: Alanine Aminotransferase 11 U/L (7-40); Albumin 4.3 g/dL (3.2-4.8); Alkaline Phosphatase 108 U/L (46-116); Anion Gap 7 (5-15); Aspartate Aminotransferase 22 U/L (13-40); BUN/Creatinine Ratio 11.6 (10.0-20.0); Calcium 9.3 mg/dL (8.7-10.4); Carbon Dioxide 30 mmol/L (20-31); Chloride 103 mmol/L (98-107); Cholesterol 192 mg/dL (< 200); Glucose 98 mg/dL (74-106); HDL Cholesterol 48 mg/dL (40-59); Magnesium 2.2 mg/dL (1.6-2.6); Potassium 3.8 mmol/L (3.5-5.1); Prostate Specific Antigen 0.83 ng/mL (0.0-4.0); Sodium 140 mmol/L (136-145); Total Protein 7.9 g/dL (5.7-8.2); Triglycerides 119 mg/dL (< 150)
[2025-01-06 11:05] LABS: % Iron Saturation 20.8 % (20-55); Bilirubin, Total 0.3 mg/dL (0.2-1.0); Blood Urea Nitrogen 38 mg/dL (9-23); LDL Cholesterol 124 mg/dL (< 100)
[2025-01-06 11:08] LABS: Ferritin 159.6 ng/mL (22-322)
[2025-01-07 10:28] LABS: Hepatitis B Core Total AB Negative (Negative)
[2025-01-07 11:13] LABS: Hepatitis A Total Antibody Positive (Negative)
[2025-01-07 11:14] LABS: Hepatitis B Surface Antibody Negative (Negative); Hepatitis B Surface Antigen Negative (Negative); Hepatitis C Antibody Negative (Negative)
[2025-01-07 12:07] LABS: Chlamydia Trachomatis, NAA Negative (Negative); Neisseria gonorrhoeae, NAA Negative (Negative)
== END | disposition home or self-care (01) ==
LOC: LAB 10:05
PROVIDERS: ATTEND Nurse Practitioner Family
DX: I12.9 Hypertensive chronic kidney disease with stage 1 through stage 4 chronic kidney disease, or unspecified chronic kidney disease (principal); N18.9 Chronic kidney disease, unspecified; Z12.5 Encounter for screening for malignant neoplasm of prostate; Z12.11 Encounter for screening for malignant neoplasm of colon; Z11.3 Encounter for screening for infections with a predominantly sexual mode of transmission; D63.1 Anemia in chronic kidney disease
CPT/HCPCS: 36415; 80053; 80061; 81001; 82306; 82607; 82728; 83036; 83540; 83550; 83735; 83970; 84153; 84443; 85025; 86703; 86704; 86706; 86708; 86780; 86803; 87340

== ENCOUNTER 2025-05-07 10:24 | Outpatient (CLI) | payer OTHER ==
[2025-05-07 11:03] LABS: Hematocrit 35.0 % (41.0-53.0); Hemoglobin 11.8 g/dL (13.5-17.5); Mean Corpuscular Hemoglobin 28.8 pg (28.0-32.0); Mean Corpuscular Volume 85.0 fL (80.0-100.0); Nucleated Red Blood Cells % 0.1 %
[2025-05-07 11:30] LABS: Alanine Aminotransferase 12 U/L (7-40); Albumin 4.1 g/dL (3.2-4.8); Alkaline Phosphatase 98 U/L (46-116); Anion Gap 9 (5-15); BUN/Creatinine Ratio 9.8 (10.0-20.0); Bilirubin, Total 0.4 mg/dL (0.2-1.0); Blood Urea Nitrogen 30 mg/dL (9-23); Calcium 8.7 mg/dL (8.7-10.4); Carbon Dioxide 27 mmol/L (20-31); Chloride 104 mmol/L (98-107); Cholesterol 127 mg/dL (< 200); Glucose 96 mg/dL (74-106); HDL Cholesterol 40 mg/dL (40-59); Potassium 4.2 mmol/L (3.5-5.1); Sodium 140 mmol/L (136-145); Total Protein 7.6 g/dL (5.7-8.2); Triglycerides 72 mg/dL (< 150)
[2025-05-08 15:56] LABS: Urine Amorphous Crystal FEW /hpf (None Seen); Urine Protein, UAD 1+ (Negative)
== END 2025-05-07 17:00 | disposition home or self-care (01) ==
LOC: LAB 10:24
PROVIDERS: ATTEND Nurse Practitioner Family
DX: I12.9 Hypertensive chronic kidney disease with stage 1 through stage 4 chronic kidney disease, or unspecified chronic kidney disease (principal); N18.4 Chronic kidney disease, stage 4 (severe); E78.5 Hyperlipidemia, unspecified; Z11.3 Encounter for screening for infections with a predominantly sexual mode of transmission; Z12.5 Encounter for screening for malignant neoplasm of prostate; E55.9 Vitamin D deficiency, unspecified
CPT/HCPCS: 36415; 80053; 80061; 81001; 82306; 83036; 84153; 84443; 85025

== ENCOUNTER → 2025-05-08 | Outpatient (CLI) | payer OTHER | END | disposition home or self-care (01) | LOC: LAB 14:53 | PROVIDERS: ATTEND Student in an Organized Health Care Education/Training Program | DX: I12.9 Hypertensive chronic kidney disease with stage 1 through stage 4 chronic kidney disease, or unspecified chronic kidney disease (principal); N18.4 Chronic kidney disease, stage 4 (severe); E78.5 Hyperlipidemia, unspecified; Z11.3 Encounter for screening for infections with a predominantly sexual mode of transmission; Z12.5 Encounter for screening for malignant neoplasm of prostate; E55.9 Vitamin D deficiency, unspecified | CPT/HCPCS: 82274 ==

== ENCOUNTER 2025-05-18 08:48 | Outpatient (CLI) | payer OTHER ==
[~2025-05-18] VITALS: Ht 167.6 cm; Wt 89.8 kg
[2025-05-18] MEDS: REGADENOSON 0.4 MG/5 ML SYRG IV ONE ×2 (10:37→10:55)
--- NOTE | 2025-05-18 14:05 | DVHSR ---
APPROVED REPORT Exam: Nuclear Stress Test BMI: 0 Stress Test Details HR Max Heart Rate (APMHR): 162.981787 bpm Target HR (85% APMHR): 137.698505 bpm BP ECG Stress ECG Conclusion lvef 44% moderate inferior wall ischemai anteriot wall with decreased counts on stress imaging abnormal study NM EXAM: Myocardial Perfusion REST/STRESS Imaging Protocol: Rest Tc-99m/Stress Tc-99m 1 day Resting Data Rest SPECT myocardial perfusion imaging was performed in supine position 60 minutes following the int ravenous injection of 9.9 mCi of Tc-99m Sestamibi. Time of rest injection: 09:15 Date: 05/18/2025 Time of rest imagin:15 Date: 05/18/2025 Administration Route: IV Administration Site: Right Arm Pharmacologic Stress Pharmacologic stress test was performed by injecting Regadenoson 0.4 mg IV push followed by the intra venous injection of 29.5 mCi of Tc-99m Sestamibi. Time of stress injection: 11:00 Date: 05/18/2025 Time of stress imagin:00 Date: 05/18/2025 Administration Route: IV Administration Site: Right Arm Gated Stress SPECT was performed 60 minutes after stress injection. The images were gated to evaluate regional wall motion and calculate left ventricular ejection fracti on. Stress only was performed in the Supine position. Nuclear Conclusion Nuclear Findings: positive for ischemia lvef 44% moderate inferior wall ischemai anteriot wall with decreased counts on stress imaging abnormal study
== END 2025-05-18 17:00 | disposition home or self-care (01) ==
LOC: XYW 08:48
PROVIDERS: ATTEND Internal Medicine
DX: I25.9 Chronic ischemic heart disease, unspecified (principal); R07.9 Chest pain, unspecified; R06.02 Shortness of breath
CPT/HCPCS: 78452; 93017; A9500; J2785

== ENCOUNTER → 2025-08-20 | Outpatient (CLI) | payer OTHER | END | disposition home or self-care (01) | LOC: XYW 10:29 | PROVIDERS: ATTEND Internal Medicine | DX: R07.9 Chest pain, unspecified (principal) | CPT/HCPCS: 93306 ==